=== PATIENT | female | born 1960 | race Caucasian/White ===

== ENCOUNTER → 2017-07-25 | Outpatient (CLI) | payer MEDICARE, MEDICAID | LOC: M ONCR 13:15 | DX: C53.9 Malignant neoplasm of cervix uteri, unspecified (principal) | CPT/HCPCS: G0463 ==

== ENCOUNTER → 2017-07-28 | Outpatient (REF) | payer MEDICARE, MEDICAID ==
[2017-07-28 13:35] LABS: INR 0.91; PROTHROMBIN TIME 12.3 SECONDS (12.4-14.5)
[2017-07-28 13:36] LABS: PARTIAL THROMBOPLASTIN TIME 28.1 SECONDS (26.8-37.9)
== END ==
LOC: M LAB REF 13:05
DX: C53.9 Malignant neoplasm of cervix uteri, unspecified (principal); Z79.01 Long term (current) use of anticoagulants
CPT/HCPCS: 85610

== ENCOUNTER 2017-08-02 13:49 | Outpatient (RCR) | payer MEDICARE, MEDICAID | END 2017-08-31 | LOC: M ONCR 13:49 | DX: C53.9 Malignant neoplasm of cervix uteri, unspecified (principal) | CPT/HCPCS: 77300 ==

== ENCOUNTER → 2017-08-02 | Outpatient (CLI) | payer MEDICARE, MEDICAID ==
[~2017-08-02] MED LIST: LIDOCAINE 2% MDV 20 ML VIAL As Ordered; ceFAZolin 1GM INJ (J0690 PER 500MG) As Ordered
== END | disposition home or self-care (01) ==
LOC: M IRPRO 09:17
DX: C53.9 Malignant neoplasm of cervix uteri, unspecified (principal)
CPT/HCPCS: 36561

== ENCOUNTER → 2017-08-14 | Outpatient (REF) ==
[2017-08-14 08:41] LABS: CHOLESTEROL LEVEL 140 MG/DL (<200); CHOLESTEROL RISK RATIO 3.255 (<5); HDL CHOLESTEROL 43 MG/DL (>40); LDL CHOLESTEROL 64.8 MG/DL (<100); NON-HDL-C 97 MG/DL; TRIGLYCERIDES LEVEL 161 MG/DL (<150); VALPROIC ACID (DEPAKOTE) 74.9 UG/ML (50.0-100.0)
== END ==
LOC: SKLAB2 07:00
DX: I63.9 Cerebral infarction, unspecified (principal); E11.9 Type 2 diabetes mellitus without complications; F31.9 Bipolar disorder, unspecified; E03.9 Hypothyroidism, unspecified

== ENCOUNTER → 2017-08-31 | Outpatient (CLI) | payer MEDICARE, MEDICAID | LOC: M ST 10:59 | DX: R13.12 Dysphagia, oropharyngeal phase (principal); C53.9 Malignant neoplasm of cervix uteri, unspecified | CPT/HCPCS: 74230 ==

== ENCOUNTER 2017-09-01 11:07 | Outpatient (RCR) | payer MEDICARE, MEDICAID | END 2017-09-30 | LOC: M ONCR 11:07 | DX: C53.9 Malignant neoplasm of cervix uteri, unspecified (principal) | CPT/HCPCS: 77336 ==

== ENCOUNTER → 2017-09-20 | Outpatient (REF) ==
[2017-09-20 13:43] LABS: THYROID STIMULATING HORMONE 0.154 uIU/ML (0.358-3.740)
== END ==
LOC: SKLAB2 11:16
DX: E03.9 Hypothyroidism, unspecified (principal)

== ENCOUNTER → 2017-10-16 | Outpatient (CLI) | payer MEDICARE, MEDICAID | LOC: M ST 11:32 | DX: R13.12 Dysphagia, oropharyngeal phase (principal) | CPT/HCPCS: 74230 ==

== ENCOUNTER → 2017-10-18 | Outpatient (CLI) | payer MEDICARE, MEDICAID | LOC: M ONCR 14:11 | DX: C53.9 Malignant neoplasm of cervix uteri, unspecified (principal) | CPT/HCPCS: G0463 ==

== ENCOUNTER 2017-10-27 13:43 | Emergency (ER) | payer MEDICARE, MEDICAID ==
[2017-10-27 14:54] LABS: BASO % 0.6 % (0.0-1.0); EOS % 0.6 % (0.0-3.0); HEMATOCRIT 30.4 % (36.0-47.0); HEMOGLOBIN 9.9 g/dl (12.0-15.5); IMMATURE GRANULOCYTE % 0.6 % (0-3.0); LYMPH # 0.4 10^3/uL (1.5-4.5); LYMPH % 23.4 % (24.0-44.0); MEAN CORPUSCULAR HEMOGLOBIN 32.6 pg (27.0-33.0); MEAN CORPUSCULAR HGB CONC 32.6 g/dl (32.0-36.5); MONO # 0.3 10^3/uL (0.0-0.8); MONO % 20.3 % (0.0-5.0); NEUTROPHILS % 54.5 % (36.0-66.0); PLATELET COUNT, AUTOMATED 131 10^3/uL (150-450); RED BLOOD COUNT 3.04 10^6/uL (4.00-5.40); RED CELL DISTRIBUTION WIDTH 16.2 % (11.5-14.5)
[2017-10-27] MEDS: NS 1,000 ML IV (15:00)
[2017-10-27 15:04] LABS: ANION GAP 5 MEQ/L (8-16); BLOOD UREA NITROGEN 16 MG/DL (7-18); CALCIUM LEVEL 8.9 MG/DL (8.5-10.1); CARBON DIOXIDE LEVEL 30 MEQ/L (21-32); CHLORIDE LEVEL 111 MEQ/L (98-107); CREATININE FOR GFR 1.38 MG/DL (0.55-1.30); GLOMERULAR FILTRATION RATE 42.4 (>51); GLUCOSE, FASTING 148 MG/DL (70-100); POTASSIUM SERUM 4.2 MEQ/L (3.5-5.1); SODIUM LEVEL 146 MEQ/L (136-145)
[2017-10-27 15:05] LABS: NEUTROPHILS # 0.9 10^3/uL (1.8-7.7); POS COUNT POS FLAG; WHITE BLOOD COUNT 1.6 10^3/uL (4.0-10.0)
[2017-10-27 15:06] LABS: POSITIVE DIFF POS FLAG
[2017-10-27 15:07] LABS: VALPROIC ACID (DEPAKOTE) 75.2 UG/ML (50.0-100.0)
== END 2017-10-27 16:54 | disposition home or self-care (01) ==
LOC: M ED 13:43
DX: S60.221A Contusion of right hand, initial encounter (principal); S80.02XA Contusion of left knee, initial encounter; X58.XXXA Exposure to other specified factors, initial encounter; Y92.129 Unspecified place in nursing home as the place of occurrence of the external cause; Y93.01 Activity, walking, marching and hiking; Y99.9 Unspecified external cause status; D64.9 Anemia, unspecified; D72.819 Decreased white blood cell count, unspecified; R00.1 Bradycardia, unspecified; I44.0 Atrioventricular block, first degree; E11.9 Type 2 diabetes mellitus without complications; F32.9 Major depressive disorder, single episode, unspecified; Z86.73 Personal history of transient ischemic attack (TIA), and cerebral infarction without residual deficits; Z72.0 Tobacco use; Z79.82 Long term (current) use of aspirin; Z79.84 Long term (current) use of oral hypoglycemic drugs; Z79.899 Other long term (current) drug therapy; Z88.8 Allergy status to other drugs, medicaments and biological substances
CPT/HCPCS: 71045

== ENCOUNTER → 2017-11-01 | Outpatient (REF) | payer MEDICARE, MEDICAID ==
[2017-11-01 07:53] LABS: THYROID STIMULATING HORMONE 0.623 uIU/ML (0.358-3.740)
== END ==
LOC: SKLAB2 07:00
DX: E07.9 Disorder of thyroid, unspecified (principal)
CPT/HCPCS: 84443

== ENCOUNTER → 2017-11-07 | Outpatient (REF) | payer MEDICARE, MEDICAID | LOC: SKLAB2 13:54 | DX: M25.572 Pain in left ankle and joints of left foot (principal); M25.562 Pain in left knee; M79.662 Pain in left lower leg | CPT/HCPCS: 73560 ==

== ENCOUNTER → 2017-11-08 | Outpatient (REF) | payer MEDICARE, MEDICAID ==
[2017-11-08 10:58] LABS: BASO % 0.3 % (0.0-1.0); EOS % 0.7 % (0.0-3.0); HEMATOCRIT 28.1 % (36.0-47.0); HEMOGLOBIN 8.9 g/dl (12.0-15.5); LYMPH # 0.6 10^3/uL (1.5-4.5); LYMPH % 19.1 % (24.0-44.0); MEAN CORPUSCULAR HEMOGLOBIN 32.2 pg (27.0-33.0); MEAN CORPUSCULAR HGB CONC 31.7 g/dl (32.0-36.5); MEAN CORPUSCULAR VOLUME 101.8 fl (80.0-96.0); MONO # 0.8 10^3/uL (0.0-0.8); MONO % 26.5 % (0.0-5.0); NEUTROPHILS # 1.6 10^3/uL (1.8-7.7); NEUTROPHILS % 52.4 % (36.0-66.0); PLATELET COUNT, AUTOMATED 158 10^3/uL (150-450); RED BLOOD COUNT 2.76 10^6/uL (4.00-5.40); RED CELL DISTRIBUTION WIDTH 15.3 % (11.5-14.5)
[2017-11-08 11:23] LABS: ANION GAP 7 MEQ/L (8-16); BLOOD UREA NITROGEN 18 MG/DL (7-18); CALCIUM LEVEL 8.7 MG/DL (8.5-10.1); CARBON DIOXIDE LEVEL 30 MEQ/L (21-32); CHLORIDE LEVEL 108 MEQ/L (98-107); CREATININE FOR GFR 1.43 MG/DL (0.55-1.30); GLOMERULAR FILTRATION RATE 40.7 (>51); GLUCOSE, FASTING 125 MG/DL (70-100); NT-PRO BNP 335 PG/ML (<125); POTASSIUM SERUM 4.3 MEQ/L (3.5-5.1); SODIUM LEVEL 145 MEQ/L (136-145)
== END ==
LOC: SKLAB2 10:26
DX: R05 Cough (principal); R09.81 Nasal congestion
CPT/HCPCS: 71045

== ENCOUNTER → 2017-11-23 | Outpatient (CLI) | payer MEDICARE, MEDICAID ==
[~2017-11-23] MED LIST changes: -ceFAZolin 1GM INJ (J0690 PER 500MG) As Ordered
== END | disposition home or self-care (01) ==
LOC: M IRPRO 12:02
DX: Z45.2 Encounter for adjustment and management of vascular access device (principal); C53.9 Malignant neoplasm of cervix uteri, unspecified; E11.9 Type 2 diabetes mellitus without complications; E03.9 Hypothyroidism, unspecified; F17.210 Nicotine dependence, cigarettes, uncomplicated; Z86.73 Personal history of transient ischemic attack (TIA), and cerebral infarction without residual deficits
CPT/HCPCS: 36590

== ENCOUNTER → 2017-12-15 | Outpatient (REF) | payer MEDICARE, MEDICAID | LOC: SKLAB2 08:29 | DX: Z01.818 Encounter for other preprocedural examination (principal) | CPT/HCPCS: 93005 ==

== ENCOUNTER → 2018-01-04 | Outpatient (REF) | payer MEDICARE, MEDICAID ==
[2018-01-04 09:23] LABS: HEMATOCRIT 33.8 % (36.0-47.0); HEMOGLOBIN 10.6 g/dl (12.0-15.5); MEAN CORPUSCULAR HGB CONC 31.4 g/dl (32.0-36.5); MEAN CORPUSCULAR VOLUME 102.1 fl (80.0-96.0); PLATELET COUNT, AUTOMATED 180 10^3/uL (150-450); RED BLOOD COUNT 3.31 10^6/uL (4.00-5.40); RED CELL DISTRIBUTION WIDTH 12.8 % (11.5-14.5); WHITE BLOOD COUNT 2.3 10^3/uL (4.0-10.0)
[2018-01-04 09:50] LABS: IRON (FE) 69 UG/DL (50-170); PERCENT SATURATION 29.2 % (13.2-45.0); TOTAL IRON BINDING CAPACITY 236 UG/DL (250-450); TOTAL PROTEIN 6.4 GM/DL (6.4-8.2)
[2018-01-04 14:25] LABS: ALBUMIN 3.19 GM/DL (3.29-5.55); ALBUMIN % 49.8 % (55.8-66.1); ALPHA-1-GLOBULIN % 5.4 % (2.9-4.9); ALPHA-1-GLOBULINS 0.35 GM/DL (0.17-0.41); ALPHA-2-GLOBULINS 0.77 GM/DL (0.42-0.99); ALPHA-2-GLOBULINS % 12.1 % (7.1-11.8); BETA-1-GLOBULINS 0.38 GM/DL (0.28-0.60); BETA-2-GLOBULINS % 6.2 % (3.2-6.5); GAMMA GLOBULIN % 20.5 % (11.1-18.8); GAMMA GLOBULINS 1.31 GM/DL (0.65-1.58)
== END ==
LOC: SKLAB2 07:10
DX: D64.9 Anemia, unspecified (principal)
CPT/HCPCS: 83550

== ENCOUNTER → 2018-01-10 | Outpatient (REF) | payer MEDICARE, MEDICAID | LOC: SKLAB2 08:00 | DX: E07.9 Disorder of thyroid, unspecified (principal) | CPT/HCPCS: 84443 ==

== ENCOUNTER → 2018-02-12 | Outpatient (REF) | payer MEDICARE, MEDICAID ==
[2018-02-12 08:38] LABS: HEMATOCRIT 35.1 % (36.0-47.0); HEMOGLOBIN 11.4 g/dl (12.0-15.5); MEAN CORPUSCULAR HEMOGLOBIN 32.2 pg (27.0-33.0); MEAN CORPUSCULAR HGB CONC 32.5 g/dl (32.0-36.5); MEAN CORPUSCULAR VOLUME 99.2 fl (80.0-96.0); PLATELET COUNT, AUTOMATED 149 10^3/uL (150-450); RED BLOOD COUNT 3.54 10^6/uL (4.00-5.40); RED CELL DISTRIBUTION WIDTH 12.9 % (11.5-14.5); WHITE BLOOD COUNT 2.3 10^3/uL (4.0-10.0)
[2018-02-12 09:50] LABS: ALBUMIN 2.6 GM/DL (3.2-5.2); ALBUMIN/GLOBULIN RATIO 0.74 (1.00-1.93); ALKALINE PHOSPHATASE 78 U/L (45-117); ALT/SGPT 10 U/L (12-78); ANION GAP 7 MEQ/L (8-16); AST/SGOT 13 U/L (7-37); BILIRUBIN,TOTAL 0.2 MG/DL (0.2-1.0); BLOOD UREA NITROGEN 18 MG/DL (7-18); CALCIUM LEVEL 8.7 MG/DL (8.5-10.1); CARBON DIOXIDE LEVEL 29 MEQ/L (21-32); CHLORIDE LEVEL 109 MEQ/L (98-107); CHOLESTEROL LEVEL 129 MG/DL (<200); CHOLESTEROL RISK RATIO 3.394 (<5); CREATININE FOR GFR 1.24 MG/DL (0.55-1.30); GLOMERULAR FILTRATION RATE 47.8 (>51); GLUCOSE, FASTING 78 MG/DL (70-100); HDL CHOLESTEROL 38 MG/DL (>40); LDL CHOLESTEROL 59 MG/DL (<100); NON-HDL-C 91 MG/DL; POTASSIUM SERUM 4.3 MEQ/L (3.5-5.1); SODIUM LEVEL 145 MEQ/L (136-145); TOTAL PROTEIN 6.1 GM/DL (6.4-8.2); TRIGLYCERIDES LEVEL 160 MG/DL (<150); VALPROIC ACID (DEPAKOTE) 65.5 UG/ML (50.0-100.0)
[2018-02-12 14:32] LABS: ESTIMATED AVERAGE GLUCOSE 100 MG/DL (60-110); HEMOGLOBIN A1c 5.1 %
== END ==
LOC: SKLAB2 07:00
DX: I63.9 Cerebral infarction, unspecified (principal); F31.9 Bipolar disorder, unspecified; E11.9 Type 2 diabetes mellitus without complications; E78.00 Pure hypercholesterolemia, unspecified
CPT/HCPCS: 84443

== ENCOUNTER → 2018-02-23 | Outpatient (REF) | payer MEDICARE, MEDICAID | LOC: SKLAB2 10:23 | DX: E03.9 Hypothyroidism, unspecified (principal) | CPT/HCPCS: 84443 ==

== ENCOUNTER → 2018-04-25 | Outpatient (CLI) | payer MEDICARE ==
[~2018-04-25] MED LIST changes: +ASPI1TAB PO; +ATOR40TA75 PO; +DEPA500T2 PO; +IMOD2CAP PO; +LEVO-86 PO; +LEVO125T4 PO; +LEXA1TAB PO; -LIDOCAINE 2% MDV 20 ML VIAL As Ordered; +METF500T4 PO; +MULTCAP PO; +NICOINH INH; +OXYB10TA PO; +PARO5TAB PO; +PREG50CA PO; +PROC5TA PO; +TESS100C PO; +ZANTTAB PO; +ZIPR80CA12 PO; +ZOFR8TAB22 PO
--- NOTE | 2018-04-25 15:06 | RADONC ---
RADIATION ONCOLOGY FOLLOWUP NOTE: DATE OF SERVICE: 04/25/2018 CHART NUMBER: [id number] DIAGNOSIS: Cervix cancer. STAGE: II A, ECOG PERFORMANCE STATUS: 3 Ms. 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 The patient presents today reporting that she is doing generally well and is having routine [facility] examinations with Dr. Calixto Callaway in [place]. She is also continuing her close followup with her medical oncologist and primary care physician. The patient reports that she is doing well and has no complaints at this time related to radiation therapy or disease. She has no urinary or bowel difficulties and no vaginal discharge. She has no bone pain or abdominal pain. REVIEW OF SYSTEMS: The patient's review of systems is positive for the physical limitations with difficulty swallowing, anorexia, visual disturbances and weakness in her arms and legs with neurological loss. She has generally decreased energy. This all remains unchanged. She continues to be a care home patient. PHYSICAL EXAMINATION: The patient is presenting in a wheelchair and is in no acute distress. HEENT exam is normocephalic, atraumatic. Extraocular movements were intact. Remainder of the physical exam was deferred at this time. ASSESSMENT: Ms. Babcock is being followed closely and undergoing routine [facility] examinations with her [facility] oncologist, Dr. Callaway. In addition, she is following with her medical oncologist here in our center. In light of the fact that she is undergoing such close followup and with my alf imminent, I have discharged her from my followup except on a as needed basis. cc: MD Hyacinth Fernandez MD Collins Kellogg, Jr, MD
== END ==
LOC: M ONCR 13:03
PROVIDERS: ATTEND Radiology Radiation Oncology
DX: C53.9 Malignant neoplasm of cervix uteri, unspecified (principal)

== ENCOUNTER → 2018-05-23 | Outpatient (REF) | payer MEDICARE, MEDICAID | LOC: SKLAB2 16:00 | PROVIDERS: ATTEND Internal Medicine | DX: R39.89 Other symptoms and signs involving the genitourinary system (principal); D64.9 Anemia, unspecified ==

== ENCOUNTER → 2018-05-23 | Outpatient (REF) | payer MEDICARE, MEDICAID ==
[~2018-05-23] MED LIST changes: -ASPI1TAB PO; +ASPI81TA26 PO
[2018-05-23 19:01] LABS: APPEARANCE, URINE HAZY (CLEAR); BACTERIA, URINE AUTO NEGATIVE (NEGATIVE); BILIRUBIN, URINE AUTO NEGATIVE (NEGATIVE); BLOOD, URINE BLOOD NEGATIVE (NEGATIVE); COLOR, URINE YELLOW (YELLOW); GLUCOSE, URINE (UA) AUTO NEGATIVE (NEGATIVE); KETONE, URINE AUTO NEGATIVE (NEGATIVE); LEUKOCYTE ESTERASE, URINE AUTO 2+ (NEGATIVE); MUCUS, URINE SMALL (NEGATIVE); NITRITE, URINE AUTO NEGATIVE (NEGATIVE); PROTEIN, URINE AUTO NEGATIVE (NEGATIVE); RBC, URINE AUTO 16 /HPF (0-3); SPECIFIC GRAVITY URINE AUTO 1.021 (1.002-1.035); SQUAMOUS EPITHELIAL CELL UR AU 1 /HPF (0-6); TRANSITIONAL EPITHELIAL AUTO <1 /HPF; UROBILINOGEN, URINE AUTO 0.2 mg/dL (0.0-2.0); WBC, URINE AUTO 48 /HPF (0-3)
== END ==
LOC: SKLAB2 07:00
PROVIDERS: ATTEND Internal Medicine
DX: D64.9 Anemia, unspecified (principal)

== ENCOUNTER → 2018-05-29 | Outpatient (CLI) | payer MEDICARE, MEDICAID ==
[~2018-05-29] MED LIST changes: +ASPI1TAB PO; -ASPI81TA26 PO
--- NOTE | 2018-05-29 12:42 | REP ---
Clinical: Bloody urine. Technique: Real time pierre scale ultrasound examination using curved array transducer. Findings: Bilateral kidneys are mildly atrophic and demonstrate cortical thinning with increased central sinus fat and scattered echogenic foci consistent with chronic medical renal disease as well as possible nonobstructing intrarenal calculi and/or renovascular calcifications. No hydronephrosis, obvious mass lesion or perinephric fluid collection identified. Right kidney measures 7.5 x 5.6 x 4.0 cm and includes 1.5 cm mid pole cyst. Left kidney measures 9.5 x 3.9 x 5.3 cm. The bladder is under distended and grossly unremarkable currently measuring 5.8 x 4.9 x 4.9 cm. Impression: 1. Evidence for chronic medical renal disease with small nonobstructing intrarenal calculi and/or renovascular calcifications. No hydronephrosis. Electronically Signed by Simon Mccall MD 05/29/2018 12:34 P
== END ==
LOC: M RAD 11:35
PROVIDERS: ATTEND Internal Medicine Hematology & Oncology
DX: R31.9 Hematuria, unspecified (principal); R93.421 Abnormal radiologic findings on diagnostic imaging of right kidney

== ENCOUNTER → 2018-08-04 | Outpatient (REF) | payer MEDICAID, MEDICARE ==
[~2018-08-04] MED LIST changes: -ASPI1TAB PO; +ASPI81TA26 PO
[2018-08-04 10:44] LABS: HEMATOCRIT 35.1 % (36.0-47.0); HEMOGLOBIN 11.5 g/dl (12.0-15.5); MEAN CORPUSCULAR HEMOGLOBIN 31.9 pg (27.0-33.0); MEAN CORPUSCULAR HGB CONC 32.8 g/dl (32.0-36.5); MEAN CORPUSCULAR VOLUME 97.2 fl (80.0-96.0); PLATELET COUNT, AUTOMATED 178 10^3/uL (150-450); RED BLOOD COUNT 3.61 10^6/uL (4.00-5.40); WHITE BLOOD COUNT 3.2 10^3/uL (4.0-10.0)
[2018-08-04 11:08] LABS: CALCIUM LEVEL 8.8 MG/DL (8.5-10.1); CREATININE FOR GFR 1.34 MG/DL (0.55-1.30); GLOMERULAR FILTRATION RATE 43.7 (>51); POTASSIUM SERUM 4.1 MEQ/L (3.5-5.1)
== END ==
LOC: SKLAB2 10:10
PROVIDERS: ATTEND Internal Medicine
DX: N93.9 Abnormal uterine and vaginal bleeding, unspecified (principal)

== ENCOUNTER → 2018-08-05 | Outpatient (REF) | payer MEDICAID, MEDICARE ==
--- NOTE | 2018-08-05 17:32 | ECGEPIP ---
Stationary ECG Study [facility] Test Date: 2018-08-05 Pat Name: AURA BRANDT Department: Room: - Gender: F [employer]: : 1960 Requested By: Josiah Tyson Order Number: [id number] Reading MD: Satinder Clemente Measurements Intervals [place] Rate: 43 P: 68 UT: 229 QRS: 11 QRSD: 80 T: 18 QT: 472 QTc: 400 Interpretive Statements Sinus bradycardia with first degree AV block No significant change when compared to prior tracing of 12/15/2017 Electronically Signed On 08-05-2018 17:32:23 EDT by Satinder Clemente
== END ==
LOC: M EKG 08:13
PROVIDERS: ATTEND Internal Medicine
DX: R00.1 Bradycardia, unspecified (principal)

== ENCOUNTER → 2018-08-13 | Outpatient (REF) | payer MEDICARE, MEDICAID ==
[2018-08-13 07:47] LABS: HEMATOCRIT 33.3 % (36.0-47.0); HEMOGLOBIN 10.7 g/dl (12.0-15.5); MEAN CORPUSCULAR HEMOGLOBIN 32.2 pg (27.0-33.0); MEAN CORPUSCULAR HGB CONC 32.1 g/dl (32.0-36.5); MEAN CORPUSCULAR VOLUME 100.3 fl (80.0-96.0); PLATELET COUNT, AUTOMATED 185 10^3/uL (150-450); RED BLOOD COUNT 3.32 10^6/uL (4.00-5.40); WHITE BLOOD COUNT 3.2 10^3/uL (4.0-10.0)
[2018-08-13 08:07] LABS: HEMOGLOBIN A1c 5.5 %
[2018-08-13 08:23] LABS: ALBUMIN 2.7 GM/DL (3.2-5.2); BILIRUBIN,TOTAL 0.3 MG/DL (0.2-1.0); CALCIUM LEVEL 8.4 MG/DL (8.5-10.1); CHOLESTEROL RISK RATIO 3.106 (<5); CREATININE FOR GFR 1.07 MG/DL (0.55-1.30); GLOMERULAR FILTRATION RATE 56.7 (>51); THYROID STIMULATING HORMONE 1.33 uIU/ML (0.358-3.740); TOTAL PROTEIN 6.1 GM/DL (6.4-8.2); VALPROIC ACID (DEPAKOTE) 30.4 UG/ML (50.0-100.0)
== END ==
LOC: SKLAB2 07:00
PROVIDERS: ATTEND Internal Medicine
DX: E78.00 Pure hypercholesterolemia, unspecified (principal); E11.9 Type 2 diabetes mellitus without complications; E07.9 Disorder of thyroid, unspecified; I67.9 Cerebrovascular disease, unspecified; F31.9 Bipolar disorder, unspecified

== ENCOUNTER → 2018-08-20 | Outpatient (REF) | payer MEDICARE, MEDICAID ==
[2018-08-20 08:25] LABS: HEMATOCRIT 36.7 % (36.0-47.0); HEMOGLOBIN 11.9 g/dl (12.0-15.5); MEAN CORPUSCULAR HEMOGLOBIN 31.9 pg (27.0-33.0); MEAN CORPUSCULAR HGB CONC 32.4 g/dl (32.0-36.5); MEAN CORPUSCULAR VOLUME 98.4 fl (80.0-96.0); PLATELET COUNT, AUTOMATED 243 10^3/uL (150-450); RED BLOOD COUNT 3.73 10^6/uL (4.00-5.40); WHITE BLOOD COUNT 7.9 10^3/uL (4.0-10.0)
[2018-08-20 08:47] LABS: BILIRUBIN,TOTAL 0.4 MG/DL (0.2-1.0); CALCIUM LEVEL 9.4 MG/DL (8.5-10.1); CREATININE FOR GFR 1.24 MG/DL (0.55-1.30); GLOMERULAR FILTRATION RATE 47.8 (>51); POTASSIUM SERUM 3.7 MEQ/L (3.5-5.1); TOTAL PROTEIN 7.5 GM/DL (6.4-8.2)
== END ==
LOC: SKLAB2 07:00
PROVIDERS: ATTEND Internal Medicine
DX: E03.9 Hypothyroidism, unspecified (principal); I67.9 Cerebrovascular disease, unspecified; F31.9 Bipolar disorder, unspecified

== ENCOUNTER → 2019-02-11 | Outpatient (REF) | payer MEDICARE, MEDICAID ==
[~2019-02-11] MED LIST changes: +LOPE-39 PO; +METF-791 PO; -METF500T4 PO; -OXYB10TA PO; +OXYB10TA2 PO; +ZANT150T40 PO; -ZANTTAB PO
[2019-02-11 08:39] LABS: HEMATOCRIT 37.9 % (36.0-47.0); HEMOGLOBIN 11.8 g/dl (12.0-15.5); MEAN CORPUSCULAR HEMOGLOBIN 31.3 pg (27.0-33.0); MEAN CORPUSCULAR HGB CONC 31.1 g/dl (32.0-36.5); MEAN CORPUSCULAR VOLUME 100.5 fl (80.0-96.0); PLATELET COUNT, AUTOMATED 216 10^3/uL (150-450); RED BLOOD COUNT 3.77 10^6/uL (4.00-5.40); WHITE BLOOD COUNT 3.8 10^3/uL (4.0-10.0)
[2019-02-11 09:09] LABS: BILIRUBIN,TOTAL 0.3 MG/DL (0.2-1.0); CALCIUM LEVEL 9.5 MG/DL (8.5-10.1); CREATININE FOR GFR 1.36 MG/DL (0.55-1.30); GLOMERULAR FILTRATION RATE 42.8 (>51); THYROID STIMULATING HORMONE 2.23 uIU/ML (0.358-3.740); TOTAL PROTEIN 7.5 GM/DL (6.4-8.2); VALPROIC ACID (DEPAKOTE) 67.4 UG/ML (50.0-100.0)
[2019-02-11 10:02] LABS: HEMOGLOBIN A1c 5.7 %
== END ==
LOC: SKLAB2 07:00
PROVIDERS: ATTEND Internal Medicine
DX: F31.9 Bipolar disorder, unspecified (principal); E03.9 Hypothyroidism, unspecified; E11.9 Type 2 diabetes mellitus without complications; I63.9 Cerebral infarction, unspecified; Z79.899 Other long term (current) drug therapy

== ENCOUNTER → 2019-03-03 | Outpatient (REF) | payer MEDICARE, MEDICAID ==
[2019-03-03 11:47] LABS: AMORPHOUS SEDIMENT SMALL (NEGATIVE); APPEARANCE, URINE CLOUDY (CLEAR); BACTERIA, URINE AUTO 1+ (NEGATIVE); BILIRUBIN, URINE AUTO NEGATIVE (NEGATIVE); BLOOD, URINE BLOOD 3+ (NEGATIVE); CALCIUM OXALATE CRYSTALS SMALL; COLOR, URINE YELLOW (YELLOW); GLUCOSE, URINE (UA) AUTO NEGATIVE (NEGATIVE); KETONE, URINE AUTO NEGATIVE (NEGATIVE); LEUKOCYTE ESTERASE, URINE AUTO 2+ (NEGATIVE); NITRITE, URINE AUTO NEGATIVE (NEGATIVE); PROTEIN, URINE AUTO 3+ mg/dL (NEGATIVE); RBC, URINE AUTO TNTC /HPF (0-3); RENAL EPITHELIAL CELLS 1 /HPF; SPECIFIC GRAVITY URINE AUTO 1.017 (1.002-1.035); SQUAMOUS EPITHELIAL CELL UR AU 7 /HPF (0-6); TRANSITIONAL EPITHELIAL AUTO <1 /HPF; UROBILINOGEN, URINE AUTO 0.2 mg/dL (0.0-2.0); WBC, URINE AUTO TNTC /HPF (0-3)
[2019-03-03 20:14] LABS: BASO % 0.3 % (0.0-1.0); EOS # 0.1 10^3/uL (0.0-0.5); EOS % 1.6 % (0.0-3.0); HEMATOCRIT 37.9 % (36.0-47.0); HEMOGLOBIN 11.6 g/dl (12.0-15.5); LYMPH # 0.8 10^3/uL (1.5-5.0); LYMPH % 21.4 % (24.0-44.0); MEAN CORPUSCULAR HEMOGLOBIN 30.9 pg (27.0-33.0); MEAN CORPUSCULAR HGB CONC 30.6 g/dl (32.0-36.5); MEAN CORPUSCULAR VOLUME 100.8 fl (80.0-96.0); MONO # 0.8 10^3/uL (0.0-0.8); MONO % 21.4 % (0.0-5.0); PLATELET COUNT, AUTOMATED 248 10^3/uL (150-450); RED BLOOD COUNT 3.76 10^6/uL (4.00-5.40); WHITE BLOOD COUNT 3.7 10^3/uL (4.0-10.0)
[2019-03-03 20:39] LABS: ALBUMIN 2.8 GM/DL (3.2-5.2); BILIRUBIN,TOTAL 0.2 MG/DL (0.2-1.0); CALCIUM LEVEL 8.6 MG/DL (8.5-10.1); CREATININE FOR GFR 1.32 MG/DL (0.55-1.30); GLOMERULAR FILTRATION RATE 44.3 (>51); POTASSIUM SERUM 4.2 MEQ/L (3.5-5.1); TOTAL PROTEIN 6.9 GM/DL (6.4-8.2)
== END ==
LOC: SKLAB2 10:24 → M LAB 10:24
PROVIDERS: ATTEND Internal Medicine
DX: R35.0 Frequency of micturition (principal)

== ENCOUNTER → 2019-03-03 | Outpatient (REF) | payer MEDICARE, MEDICAID | LOC: SKLAB2 17:20 | PROVIDERS: ATTEND Internal Medicine | DX: R35.0 Frequency of micturition (principal); R30.0 Dysuria ==

== ENCOUNTER → 2019-03-08 | Outpatient (REF) | payer MEDICARE, MEDICAID ==
[2019-03-08 18:32] LABS: APPEARANCE, URINE HAZY (CLEAR); BACTERIA, URINE AUTO NEGATIVE (NEGATIVE); BILIRUBIN, URINE AUTO NEGATIVE (NEGATIVE); BLOOD, URINE BLOOD 1+ (NEGATIVE); COLOR, URINE YELLOW (YELLOW); GLUCOSE, URINE (UA) AUTO NEGATIVE (NEGATIVE); KETONE, URINE AUTO NEGATIVE (NEGATIVE); LEUKOCYTE ESTERASE, URINE AUTO 2+ (NEGATIVE); NITRITE, URINE AUTO NEGATIVE (NEGATIVE); PROTEIN, URINE AUTO NEGATIVE (NEGATIVE); RBC, URINE AUTO 18 /HPF (0-3); SPECIFIC GRAVITY URINE AUTO 1.017 (1.002-1.035); SQUAMOUS EPITHELIAL CELL UR AU 2 /HPF (0-6); UROBILINOGEN, URINE AUTO 0.2 mg/dL (0.0-2.0); WBC, URINE AUTO 36 /HPF (0-3)
== END ==
LOC: SKLAB2 12:19
PROVIDERS: ATTEND Internal Medicine
DX: N39.0 Urinary tract infection, site not specified (principal)

== ENCOUNTER → 2019-08-13 | Outpatient (REF) ==
[~2019-08-13] MED LIST changes: -METF-791 PO; +METF-838 PO; -OXYB10TA2 PO; +OXYB10TA23 PO
== END ==
LOC: SKLAB2 07:00
PROVIDERS: ATTEND Internal Medicine
DX: Z03.818 Encounter for observation for suspected exposure to other biological agents ruled out (principal)

== ENCOUNTER → 2019-08-13 | Outpatient (REF) | payer MEDICARE, MEDICAID ==
[2019-08-13 08:47] LABS: HEMATOCRIT 38.7 % (36.0-47.0); HEMOGLOBIN 11.9 g/dl (12.0-15.5); MEAN CORPUSCULAR HEMOGLOBIN 30.4 pg (27.0-33.0); MEAN CORPUSCULAR HGB CONC 30.7 g/dl (32.0-36.5); MEAN CORPUSCULAR VOLUME 98.7 fl (80.0-96.0); PLATELET COUNT, AUTOMATED 239 10^3/uL (150-450); RED BLOOD COUNT 3.92 10^6/uL (4.00-5.40); WHITE BLOOD COUNT 4.7 10^3/uL (4.0-10.0)
[2019-08-13 09:20] LABS: ALBUMIN 2.7 GM/DL (3.2-5.2); BILIRUBIN,TOTAL 0.3 MG/DL (0.2-1.0); CALCIUM LEVEL 9.2 MG/DL (8.5-10.1); CHOLESTEROL RISK RATIO 3.8 (<5); CREATININE FOR GFR 1.55 MG/DL (0.55-1.30); GLOMERULAR FILTRATION RATE 36.8 (>51); POTASSIUM SERUM 4.2 MEQ/L (3.5-5.1); THYROID STIMULATING HORMONE 2.77 uIU/ML (0.358-3.740); TOTAL PROTEIN 7.4 GM/DL (6.4-8.2); VALPROIC ACID (DEPAKOTE) 60.6 UG/ML (50.0-100.0)
[2019-08-13 09:47] LABS: HEMOGLOBIN A1c 6.7 %
== END ==
LOC: SKLAB2 07:00
PROVIDERS: ATTEND Internal Medicine
DX: E07.9 Disorder of thyroid, unspecified (principal); E11.9 Type 2 diabetes mellitus without complications; E78.00 Pure hypercholesterolemia, unspecified

== ENCOUNTER → 2020-01-22 | Outpatient (REF) | payer MEDICARE, MEDICAID ==
[~2020-01-22] MED LIST changes: -PROC5TA PO; +PROC5TAB57 PO
[2020-01-22 07:50] LABS: PHOSPHORUS LEVEL 3.5 MG/DL (2.5-4.9)
[2020-01-22 09:01] LABS: PTH INTACT 27.7 PG/ML (18.5-88.0); TOTAL 25(OH) VITAMIN D 79.8 NG/ML (30.0-100.0)
== END ==
LOC: SKLAB2 07:00
PROVIDERS: ATTEND Internal Medicine
DX: I50.9 Heart failure, unspecified (principal); Z79.899 Other long term (current) drug therapy

== ENCOUNTER → 2020-02-11 | Outpatient (REF) | payer MEDICARE, MEDICAID ==
[2020-02-11 09:44] LABS: HEMATOCRIT 37.1 % (36.0-47.0); HEMOGLOBIN 11.2 g/dl (12.0-15.5); MEAN CORPUSCULAR HEMOGLOBIN 29.6 pg (27.0-33.0); MEAN CORPUSCULAR HGB CONC 30.2 g/dl (32.0-36.5); MEAN CORPUSCULAR VOLUME 98.1 fl (80.0-96.0); PLATELET COUNT, AUTOMATED 240 10^3/uL (150-450); RED BLOOD COUNT 3.78 10^6/uL (4.00-5.40); WHITE BLOOD COUNT 4.9 10^3/uL (4.0-10.0)
[2020-02-11 10:04] LABS: HEMOGLOBIN A1c 9.4 %
[2020-02-11 10:16] LABS: ALBUMIN 2.5 GM/DL (3.2-5.2); BILIRUBIN,TOTAL 0.2 MG/DL (0.2-1.0); CALCIUM LEVEL 9.5 MG/DL (8.5-10.1); CHOLESTEROL RISK RATIO 3.325 (<5); CREATININE FOR GFR 1.55 MG/DL (0.55-1.30); GLOMERULAR FILTRATION RATE 36.7 (>51); POTASSIUM SERUM 4.2 MEQ/L (3.5-5.1); THYROID STIMULATING HORMONE 1.95 uIU/ML (0.358-3.740); TOTAL PROTEIN 7.5 GM/DL (6.4-8.2); VALPROIC ACID (DEPAKOTE) 70.7 UG/ML (50.0-100.0)
== END ==
LOC: SKLAB2 08:30
PROVIDERS: ATTEND Internal Medicine
DX: F31.9 Bipolar disorder, unspecified (principal); E03.9 Hypothyroidism, unspecified; E11.9 Type 2 diabetes mellitus without complications; E78.00 Pure hypercholesterolemia, unspecified; Z86.73 Personal history of transient ischemic attack (TIA), and cerebral infarction without residual deficits

== ENCOUNTER → 2020-02-13 | Outpatient (REF) | payer MEDICAID, MEDICARE | LOC: SKLAB2 12:47 | PROVIDERS: ATTEND Internal Medicine | DX: Z20.828 Contact with and (suspected) exposure to other viral communicable diseases (principal) ==

== ENCOUNTER → 2020-02-19 | Outpatient (REF) | payer MEDICARE, MEDICAID | LOC: SKLAB2 02-18 11:25 → EDSTATUS 03-12 06:44 | PROVIDERS: ATTEND Internal Medicine | DX: Z20.828 Contact with and (suspected) exposure to other viral communicable diseases (principal) ==

== ENCOUNTER → 2020-03-04 | Outpatient (REF) | payer MEDICARE, MEDICAID | LOC: SKLAB2 08:00 | PROVIDERS: ATTEND Internal Medicine | DX: Z20.828 Contact with and (suspected) exposure to other viral communicable diseases (principal) ==

== ENCOUNTER → 2020-03-11 | Outpatient (REF) | payer MEDICARE, MEDICAID | LOC: SKLAB2 07:33 | PROVIDERS: ATTEND Internal Medicine | DX: Z20.828 Contact with and (suspected) exposure to other viral communicable diseases (principal) ==

== ENCOUNTER → 2020-03-18 | Outpatient (REF) | payer MEDICARE, MEDICAID | LOC: SKLAB2 11:30 | PROVIDERS: ATTEND Internal Medicine | DX: Z20.828 Contact with and (suspected) exposure to other viral communicable diseases (principal) ==

== ENCOUNTER → 2020-03-25 | Outpatient (REF) | payer MEDICARE, MEDICAID | LOC: SKLAB2 08:04 | PROVIDERS: ATTEND Internal Medicine | DX: Z20.828 Contact with and (suspected) exposure to other viral communicable diseases (principal) ==

== ENCOUNTER → 2020-03-31 | Outpatient (REF) | payer MEDICARE, MEDICAID ==
[2020-03-31 09:47] LABS: HEMOGLOBIN A1c 10.8 %
== END ==
LOC: SKLAB2 08:21
PROVIDERS: ATTEND Internal Medicine
DX: E11.9 Type 2 diabetes mellitus without complications (principal)

== ENCOUNTER → 2020-04-01 | Outpatient (REF) | payer MEDICARE, MEDICAID | LOC: SKLAB2 10:17 | PROVIDERS: ATTEND Internal Medicine | DX: Z20.828 Contact with and (suspected) exposure to other viral communicable diseases (principal) ==

== ENCOUNTER → 2020-04-08 | Outpatient (REF) | payer MEDICARE, MEDICAID | LOC: SKLAB2 07:00 | PROVIDERS: ATTEND Internal Medicine | DX: Z11.52 Encounter for screening for COVID-19 (principal) ==

== ENCOUNTER → 2020-04-15 | Outpatient (REF) | payer MEDICARE, MEDICAID | LOC: SKLAB2 07:00 | PROVIDERS: ATTEND Internal Medicine | DX: Z20.822 Contact with and (suspected) exposure to COVID-19 (principal) ==

== ENCOUNTER → 2020-04-22 | Outpatient (REF) | payer MEDICARE, MEDICAID | LOC: SKLAB2 07:00 | PROVIDERS: ATTEND Internal Medicine | DX: Z20.822 Contact with and (suspected) exposure to COVID-19 (principal) ==

== ENCOUNTER → 2020-04-29 | Outpatient (REF) | payer MEDICARE, MEDICAID | LOC: SKLAB2 13:59 | PROVIDERS: ATTEND Internal Medicine | DX: Z20.822 Contact with and (suspected) exposure to COVID-19 (principal) ==

== ENCOUNTER → 2020-05-06 | Outpatient (REF) | payer MEDICARE, MEDICAID | LOC: SKLAB2 10:35 | PROVIDERS: ATTEND Internal Medicine | DX: Z11.52 Encounter for screening for COVID-19 (principal) ==

== ENCOUNTER → 2020-05-13 | Outpatient (REF) | payer MEDICARE, MEDICAID | LOC: SKLAB2 10:51 | PROVIDERS: ATTEND Internal Medicine | DX: Z20.822 Contact with and (suspected) exposure to COVID-19 (principal) ==

== ENCOUNTER → 2020-05-20 | Outpatient (REF) | payer MEDICARE, MEDICAID | LOC: SKLAB2 08:08 | PROVIDERS: ATTEND Internal Medicine | DX: Z20.822 Contact with and (suspected) exposure to COVID-19 (principal) ==

== ENCOUNTER → 2020-05-27 | Outpatient (REF) | payer MEDICARE, MEDICAID | LOC: SKLAB2 09:20 | PROVIDERS: ATTEND Internal Medicine | DX: Z20.822 Contact with and (suspected) exposure to COVID-19 (principal) ==

== ENCOUNTER → 2020-06-10 | Outpatient (REF) | payer MEDICARE, MEDICAID | LOC: SKLAB2 08:00 | PROVIDERS: ATTEND Internal Medicine | DX: Z11.52 Encounter for screening for COVID-19 (principal) ==

== ENCOUNTER → 2020-06-17 | Outpatient (REF) | payer MEDICARE, MEDICAID | LOC: SKLAB2 10:28 | PROVIDERS: ATTEND Internal Medicine | DX: Z20.822 Contact with and (suspected) exposure to COVID-19 (principal) ==

== ENCOUNTER 2020-06-28 17:27 | Emergency (ER) | payer MEDICARE, MEDICAID ==
[~2020-06-28] VITALS: Ht 162.6 cm; Wt 106.8 kg
--- NOTE | 2020-06-28 18:53 | REP ---
INDICATION: fall. COMPARISON: Comparison left tib fib and knee radiographs are from October 27, 2017.. TECHNIQUE: Four views including cross-table lateral view. No sunrise view could be obtained due to patient immobility. FINDINGS: Four views of the left knee demonstrate diffuse osteoporosis. There is chondrocalcinosis medially and laterally in the tibiofemoral articulation. No fracture is visualized. However, there is a fat fluid level in the suprapatellar bursa which suggests an intra-articular fracture. Consider occult lateral tibial plateau fracture. Consider CT study.. . No opaque foreign body noted. IMPRESSION: Lipohemarthrosis consistent with intra-articular fracture. Not definitely visualized radiographically. Question occult lateral tibial plateau fracture. Consider CT.. <Electronically signed by Ronald Powers > 06/28/20 [id number]
--- NOTE | 2020-06-28 20:23 | REPVR ---
PROCEDURE INFORMATION: Exam: CT Left Lower Extremity Without Contrast, Knee Exam date and time: 06/28/2020 7:26 PM Age: 59 years old Clinical indication: Pain; Knee; Left; Additional info: R/O FX TECHNIQUE: Imaging protocol: CT of the Left lower extremity without contrast was performed. Exam focused on the knee. Radiation optimization: All CT scans at this facility use at least one of these dose optimization techniques: automated exposure control; mA and/or kV adjustment per patient size (includes targeted exams where dose is matched to clinical indication); or iterative reconstruction. COMPARISON: CR Knee, complete LEFT 06/28/2020 5:49 PM FINDINGS: Bones/joints: There is a moderate suprapatellar joint effusion with a fat fluid level. A fat fluid level is indicative of occult fracture. There is calcification of the medial and lateral meniscus. This can be seen with a variety of arthridities including calcium pyrophosphate deposition arthritis. At the posterior aspect of the mid tibia is a 2 cm by 2 cm by 6 mm in thickness fragment of bone. This is probably a small acute fracture fragment at the base of the PCL. This could be associated with ligamentous injury. Soft tissues: There is severe atrophy of the medial head of the gastrocnemius muscle of the left knee. Vasculature: There is some vascular calcification. IMPRESSION: 1. Moderate-sized suprapatellar joint effusion with a fat fluid level consistent with association with the fracture. 2. 2 cm x 2 cm x 6 mm in thickness fragment of bone posterior tibia near the tibial attachment of the PCL probably an area of acute fracture. Suspect association with ligamentous injury in this area as well. 3. Prominent meniscal calcification especially lateral meniscus associated with arthritis. Electronically signed by: Ayden Davis On 06/28/2020 20:23:22 PM
[2020-06-28] MEDS ORDERED: OXYCODONE/APAP 5MG/325MG(BULK FOR ED) 1 TABLET PO ONE (20:30)
[2020-06-28] MEDS ORDERED: PERCOCET PO (20:33)
[2020-06-28 21:00] VITALS: BP 147/64
== END 2020-06-28 21:47 | disposition home or self-care (01) ==
LOC: M ED 17:27
DX: S82.102A Unspecified fracture of upper end of left tibia, initial encounter for closed fracture (principal); S80.02XA Contusion of left knee, initial encounter; W19.XXXA Unspecified fall, initial encounter; Y92.9 Unspecified place or not applicable; Y93.9 Activity, unspecified; Y99.9 Unspecified external cause status; I51.9 Heart disease, unspecified; I10 Essential (primary) hypertension; E11.9 Type 2 diabetes mellitus without complications; M23.301 Other meniscus derangements, unspecified lateral meniscus, left knee; Z79.82 Long term (current) use of aspirin; Z79.84 Long term (current) use of oral hypoglycemic drugs; Z79.899 Other long term (current) drug therapy; Z88.8 Allergy status to other drugs, medicaments and biological substances

== ENCOUNTER → 2020-07-03 | Outpatient (REF) | payer MEDICARE, MEDICAID ==
[~2020-07-03] MED LIST changes: +PERCOCET PO
== END ==
LOC: SKLAB2 13:09
PROVIDERS: ATTEND Internal Medicine
DX: Z20.822 Contact with and (suspected) exposure to COVID-19 (principal)

== ENCOUNTER → 2020-08-11 | Outpatient (REF) | payer MEDICARE, MEDICAID ==
[2020-08-11 09:04] LABS: HEMATOCRIT 33.5 % (36.0-47.0); HEMOGLOBIN 9.8 g/dl (12.0-15.5); MEAN CORPUSCULAR HEMOGLOBIN 27.8 pg (27.0-33.0); MEAN CORPUSCULAR HGB CONC 29.3 g/dl (32.0-36.5); MEAN CORPUSCULAR VOLUME 95.2 fl (80.0-96.0); PLATELET COUNT, AUTOMATED 294 10^3/uL (150-450); RED BLOOD COUNT 3.52 10^6/uL (4.00-5.40); WHITE BLOOD COUNT 6.6 10^3/uL (4.0-10.0)
[2020-08-11 09:31] LABS: BILIRUBIN,TOTAL 0.2 MG/DL (0.2-1.0); CALCIUM LEVEL 9.1 MG/DL (8.5-10.1); CHOLESTEROL RISK RATIO 3.024 (<5); CREATININE FOR GFR 1.2 MG/DL (0.55-1.30); GLOMERULAR FILTRATION RATE 49.3 (>51); POTASSIUM SERUM 3.9 MEQ/L (3.5-5.1); THYROID STIMULATING HORMONE 3.17 uIU/ML (0.358-3.740); VALPROIC ACID (DEPAKOTE) 60.5 UG/ML (50.0-100.0)
[2020-08-11 13:48] LABS: HEMOGLOBIN A1c 6.9 %
== END ==
LOC: SKLAB2 11:47
PROVIDERS: ATTEND Internal Medicine
DX: E03.9 Hypothyroidism, unspecified (principal); E11.9 Type 2 diabetes mellitus without complications

== ENCOUNTER → 2020-09-08 | Outpatient (REF) | payer MEDICARE, MEDICAID ==
[2020-09-08 12:34] LABS: HEMOGLOBIN A1c 6.8 %
== END ==
LOC: SKLAB2 13:13
PROVIDERS: ATTEND Internal Medicine
DX: E11.9 Type 2 diabetes mellitus without complications (principal)

== ENCOUNTER → 2020-09-30 | Outpatient (REF) | payer MEDICARE, MEDICAID ==
[2020-09-30 12:27] LABS: APPEARANCE, URINE HAZY (CLEAR); BACTERIA, URINE AUTO NEGATIVE (NEGATIVE); BILIRUBIN, URINE AUTO NEGATIVE (NEGATIVE); BLOOD, URINE BLOOD NEGATIVE (NEGATIVE); COLOR, URINE YELLOW (YELLOW); GLUCOSE, URINE (UA) AUTO NEGATIVE (NEGATIVE); KETONE, URINE AUTO NEGATIVE (NEGATIVE); LEUKOCYTE ESTERASE, URINE AUTO NEGATIVE (NEGATIVE); NITRITE, URINE AUTO NEGATIVE (NEGATIVE); PROTEIN, URINE AUTO 2+ mg/dL (NEGATIVE); RBC, URINE AUTO 0 /HPF (0-3); SPECIFIC GRAVITY URINE AUTO 1.012 (1.002-1.035); SQUAMOUS EPITHELIAL CELL UR AU 0 /HPF (0-6); UROBILINOGEN, URINE AUTO 0.2 mg/dL (0.0-2.0); WBC, URINE AUTO 0 /HPF (0-3)
[2020-09-30 13:33] LABS: HEMATOCRIT 26.9 % (36.0-47.0); MEAN CORPUSCULAR HEMOGLOBIN 26.6 pg (27.0-33.0); MEAN CORPUSCULAR HGB CONC 29.7 g/dl (32.0-36.5); MEAN CORPUSCULAR VOLUME 89.4 fl (80.0-96.0); PLATELET COUNT, AUTOMATED 284 10^3/uL (150-450); RED BLOOD COUNT 3.01 10^6/uL (4.00-5.40); WHITE BLOOD COUNT 10.1 10^3/uL (4.0-10.0)
[2020-09-30 14:03] LABS: CALCIUM LEVEL 9.2 MG/DL (8.5-10.1); CREATININE FOR GFR 1.83 MG/DL (0.55-1.30); GLOMERULAR FILTRATION RATE 30.3 (>51); POTASSIUM SERUM 2.7 MEQ/L (3.5-5.1)
--- NOTE | 2020-09-30 14:09 | REP ---
INDICATION: SOB. COMPARISON: 11/08/2017 TECHNIQUE: Portable FINDINGS: The technique utilized in obtaining the radiograph has magnified the cardiac silhouette and attenuated the interstitial markings. There is mild cardiomegaly accentuated by technique. There is a patchy opacity in the right lower lobe accentuated by technique. The osseous structures stable. IMPRESSION: Patchy right lower lobe opacity suspicious for pneumonia. <Electronically signed by Jm Dixon > 09/30/20 [id number]
== END ==
LOC: SKLAB2 11:08
PROVIDERS: ATTEND Internal Medicine
DX: R41.82 Altered mental status, unspecified (principal); R06.02 Shortness of breath; J98.4 Other disorders of lung

== ENCOUNTER → 2020-10-01 | Outpatient (REF) | payer MEDICARE, MEDICAID ==
[2020-10-01 10:07] LABS: HEMATOCRIT 26.8 % (36.0-47.0); MEAN CORPUSCULAR HEMOGLOBIN 27.2 pg (27.0-33.0); MEAN CORPUSCULAR HGB CONC 29.9 g/dl (32.0-36.5); MEAN CORPUSCULAR VOLUME 91.2 fl (80.0-96.0); PLATELET COUNT, AUTOMATED 267 10^3/uL (150-450); RED BLOOD COUNT 2.94 10^6/uL (4.00-5.40); WHITE BLOOD COUNT 10.6 10^3/uL (4.0-10.0)
[2020-10-01 10:26] LABS: CALCIUM LEVEL 9.1 MG/DL (8.5-10.1); CREATININE FOR GFR 1.83 MG/DL (0.55-1.30); GLOMERULAR FILTRATION RATE 30.3 (>51); POTASSIUM SERUM 3.8 MEQ/L (3.5-5.1)
== END ==
LOC: SKLAB2 10:46
PROVIDERS: ATTEND Internal Medicine
DX: N17.9 Acute kidney failure, unspecified (principal)

== ENCOUNTER → 2020-10-02 | Outpatient (REF) | payer MEDICARE, MEDICAID ==
[2020-10-02 10:07] LABS: HEMOGLOBIN 8.2 g/dl (12.0-15.5); MEAN CORPUSCULAR HEMOGLOBIN 26.7 pg (27.0-33.0); MEAN CORPUSCULAR HGB CONC 29.3 g/dl (32.0-36.5); MEAN CORPUSCULAR VOLUME 91.2 fl (80.0-96.0); PLATELET COUNT, AUTOMATED 243 10^3/uL (150-450); RED BLOOD COUNT 3.07 10^6/uL (4.00-5.40)
[2020-10-02 10:34] LABS: CALCIUM LEVEL 8.4 MG/DL (8.5-10.1); CREATININE FOR GFR 1.8 MG/DL (0.55-1.30); GLOMERULAR FILTRATION RATE 30.9 (>51); POTASSIUM SERUM 3.8 MEQ/L (3.5-5.1)
== END ==
LOC: SKLAB2 10:47
PROVIDERS: ATTEND Internal Medicine
DX: N17.9 Acute kidney failure, unspecified (principal)

== ENCOUNTER → 2020-10-06 | Outpatient (REF) | payer MEDICARE, MEDICAID ==
[2020-10-06 11:10] LABS: HEMATOCRIT 25.6 % (36.0-47.0); HEMOGLOBIN 7.4 g/dl (12.0-15.5); MEAN CORPUSCULAR HEMOGLOBIN 26.8 pg (27.0-33.0); MEAN CORPUSCULAR HGB CONC 28.9 g/dl (32.0-36.5); MEAN CORPUSCULAR VOLUME 92.8 fl (80.0-96.0); PLATELET COUNT, AUTOMATED 307 10^3/uL (150-450); RED BLOOD COUNT 2.76 10^6/uL (4.00-5.40); WHITE BLOOD COUNT 6.3 10^3/uL (4.0-10.0)
[2020-10-06 11:44] LABS: ALBUMIN 1.1 GM/DL (3.2-5.2); BILIRUBIN,TOTAL 0.1 MG/DL (0.2-1.0); CALCIUM LEVEL 10.2 MG/DL (8.5-10.1); CREATININE FOR GFR 1.75 MG/DL (0.55-1.30); GLOMERULAR FILTRATION RATE 31.9 (>51); POTASSIUM SERUM 4.2 MEQ/L (3.5-5.1); TOTAL PROTEIN 6.4 GM/DL (6.4-8.2)
== END ==
LOC: SKLAB2 10:47
PROVIDERS: ATTEND Internal Medicine
DX: N17.9 Acute kidney failure, unspecified (principal)

== ENCOUNTER → 2020-10-16 | Outpatient (REF) | payer MEDICARE, MEDICAID ==
[2020-10-16 08:39] LABS: CALCIUM LEVEL 10.8 MG/DL (8.5-10.1); CREATININE FOR GFR 1.94 MG/DL (0.55-1.30); GLOMERULAR FILTRATION RATE 28.3 (>51); POTASSIUM SERUM 3.4 MEQ/L (3.5-5.1)
== END ==
LOC: SKLAB2 12:43
PROVIDERS: ATTEND Internal Medicine
DX: E87.6 Hypokalemia (principal)

== ENCOUNTER → 2020-10-20 | Outpatient (REF) | payer MEDICARE, MEDICAID ==
[2020-10-20 10:56] LABS: CREATININE FOR GFR 2.48 MG/DL (0.55-1.30); GLOMERULAR FILTRATION RATE 21.3 (>51)
== END ==
LOC: SKLAB2 12:05
PROVIDERS: ATTEND Internal Medicine
DX: E87.6 Hypokalemia (principal)

== ENCOUNTER → 2020-10-21 | Outpatient (REF) | payer MEDICARE, MEDICAID ==
[2020-10-21 07:33] LABS: CALCIUM LEVEL 10.6 MG/DL (8.5-10.1); CREATININE FOR GFR 2.28 MG/DL (0.55-1.30); GLOMERULAR FILTRATION RATE 23.5 (>51); POTASSIUM SERUM 2.9 MEQ/L (3.5-5.1)
== END ==
LOC: SKLAB2 12:06
PROVIDERS: ATTEND Internal Medicine
DX: N17.9 Acute kidney failure, unspecified (principal)

== ENCOUNTER → 2020-10-22 | Outpatient (REF) | payer MEDICARE, MEDICAID ==
[2020-10-22 11:34] LABS: CALCIUM LEVEL 10.5 MG/DL (8.5-10.1); CREATININE FOR GFR 2.21 MG/DL (0.55-1.30); GLOMERULAR FILTRATION RATE 24.4 (>51); POTASSIUM SERUM 3.1 MEQ/L (3.5-5.1)
== END ==
LOC: SKLAB2 12:06
PROVIDERS: ATTEND Internal Medicine
DX: N17.9 Acute kidney failure, unspecified (principal)

== ENCOUNTER → 2020-10-23 | Outpatient (REF) | payer MEDICARE, MEDICAID ==
[2020-10-23 10:26] LABS: CREATININE FOR GFR 2.38 MG/DL (0.55-1.30); GLOMERULAR FILTRATION RATE 22.4 (>51); POTASSIUM SERUM 3.7 MEQ/L (3.5-5.1)
== END ==
LOC: SKLAB2 12:07
PROVIDERS: ATTEND Internal Medicine
DX: N17.9 Acute kidney failure, unspecified (principal)